=== PATIENT | male | born 1995 | race Two or more races ===

== ENCOUNTER 2017-03-31 17:56 | Emergency (ER) | payer MEDICAID, OTHER ==
[~2017-03-31] VITALS: Ht 175.3 cm; Wt 78.4 kg
[2017-03-31 18:17] VITALS: Ht 175.3 cm; Wt 78.4 kg
[2017-03-31] MEDS ORDERED: IBUP-1542 PO (19:36)
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
== END 2017-03-31 19:52 | disposition home or self-care (01) ==
LOC: FTE 17:56
DX: M54.2 Cervicalgia (principal)
CPT/HCPCS: 99283